=== PATIENT | male | born 1975 | race American Indian/Alaskan Native ===

== ENCOUNTER 2018-03-09 14:28 | Emergency (ER) | payer SELFPAY ==
[2018-03-09 14:53] VITALS: BP 148/86
[2018-03-09] MEDS ORDERED: SOLU-Medrol IM STA (15:43)
--- NOTE | 2018-03-09 15:49 | Emergency Department Report ---
Upper Extremity - HPI Chief Complaint: Shoulder Injury Stated Complaint: RT SHOULDER PAIN Time Seen by Provider: 03/09/18 15:43 Upper Extremity: Right Shoulder (went to sleep on the right shoulder. I'll position. When he woke up reports a lot of sharp burning pain. Mr. 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 Reports no numbness or tingling. Requests were sterile injection) Occurred When: 1 Day Severity: moderate Symptoms: Yes Pain with Movement, Yes Limited Range of Movement, No Deformity, No Numbness, No Weakness, No Swelling, No Bruising/Ecchymosis, No Laceration or Abrasion ED Review of Systems ROS: Stated complaint: RT SHOULDER PAIN Other details as noted in HPI Constitutional: denies: chills, fever Eyes: denies: eye pain, eye discharge, vision change ENT: denies: ear pain, throat pain Respiratory: denies: cough, shortness of breath, wheezing Cardiovascular: denies: chest pain, palpitations Endocrine: no symptoms reported Gastrointestinal: denies: abdominal pain, nausea, diarrhea Genitourinary: denies: urgency, dysuria Musculoskeletal: arthralgia. denies: back pain, joint swelling Skin: denies: rash, lesions Neurological: denies: headache, weakness, paresthesias Psychiatric: denies: anxiety, depression Hematological/Lymphatic: denies: easy bleeding, easy bruising ED Past Medical Hx - Past Medical History Previous Medical History?: Yes Hx Seizures: Yes - Surgical History Past Surgical History?: No - Social History Smoking Status: Current Every Day Smoker Substance Use Type: Alcohol - Medications Home Medications: Home Medications Medication Instructions Recorded Confirmed Last Taken Type Ketorolac [Toradol] 10 mg PO Q6H PRN #15 tablet 03/09/18 Unknown Rx Methocarbamol [Robaxin-750] 750 mg PO Q8H PRN #20 tablet 03/09/18 Unknown Rx Upper Extremity Exam - Exam General: Vital signs noted. No distress. Alert and acting appropriately. Head and Torso: No HEENT Abnormality, No Neck Tenderness, No Chest/Lungs Abnormality, No Abdominal Tenderness, No Back Tenderness Shoulder Exam: Yes Shoulder Tenderness (pain with Aguilar test, nares, chest, brines's test. There is tenderness to the acromioclavicular process. No lymphadenopathy, bruising, abrasions.), Yes Normal Range of Motion in Shoulder, Yes AC Joint Tenderness, No Clavicle Tenderness, No Shoulder Deformity (no sulcus sign is appreciated) Arm Exam: No Arm/Humerus Tenderness, No Arm Deformity Elbow: No Elbow Tenderness, No Normal Range of Motion in Elbow, No Elbow Deformity Forearm: No Forearm Tenderness, No Forearm Deformity, No Pain with Pronation, No Pain with Supination Wrist: Yes Normal ROM in Wrist, No Wrist Tenderness, No Wrist Deformity, No Snuffbox Tenderness, No Pain with Axial Thumb Compression Hand: Yes Normal ROM in Digit(s), No Hand Tenderness, No Hand Deformity, No Digit Tenderness, No Digit(s) Deformity, No Tendon Dysfunction CMS Exam: No Broken Skin, No Normal Distal Pulses, No Normal Capillary Refill, No Normal Distal Sensation ED Course Vital Signs 03/09/18 14:47 Temperature 98.6 F Pulse Rate 60 Respiratory 16 Rate Blood Pressure 148/86 O2 Sat by Pulse 96 Oximetry Critical care attestation.: If time is entered above; I have spent that time in minutes in the direct care of this critically ill patient, excluding procedure time. ED Disposition Clinical Impression: Shoulder pain Disposition: DC-01 TO HOME OR SELFCARE Is pt being admited?: No Does the pt Need Aspirin: No Condition: Stable Instructions: Shoulder Sprain (ED), Arthralgia (ED) Prescriptions: Ketorolac [Toradol] 10 mg PO Q6H PRN #15 tablet PRN Reason: Pain Methocarbamol [Robaxin-750] 750 mg PO Q8H PRN #20 tablet PRN Reason: Spasms Referrals: PRIMARY MD CHADWICK [Primary Care Provider] - 3-5 Days GALEN GODOY MD [Staff Physician] - 3-5 Days
[2018-03-09] MEDS ORDERED: TYLENOL ONE ×2 (15:53→15:57)
[2018-03-09] MEDS ORDERED: TYLENOL PO ONE (15:57)
== END 2018-03-09 16:15 | disposition home or self-care (01) ==
LOC: ED 14:28
DX: M25.511 Pain in right shoulder (principal); F17.200 Nicotine dependence, unspecified, uncomplicated
CPT/HCPCS: 96372; 99282; J2930

== ENCOUNTER 2018-06-03 20:15 | Emergency (ER) | payer OTHER ==
[2018-06-03 20:20] VITALS: BP 138/79
[2018-06-03] MEDS ORDERED: IBUPROFEN ONE (20:31)
[2018-06-03] MEDS ORDERED: IBUPROFEN PO ONE (20:32)
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
== END 2018-06-03 23:19 | disposition home or self-care (01) ==
LOC: ED 20:15
DX: S16.1XXA Strain of muscle, fascia and tendon at neck level, initial encounter (principal); M50.322 Other cervical disc degeneration at C5-C6 level; M54.6 Pain in thoracic spine; V89.2XXA Person injured in unspecified motor-vehicle accident, traffic, initial encounter; Y93.89 Activity, other specified; Y99.8 Other external cause status; Y92.410 Unspecified street and highway as the place of occurrence of the external cause
CPT/HCPCS: 72040; 99283

== ENCOUNTER 2019-05-17 20:00 | Emergency (ER) | payer SELFPAY | END 2019-05-17 23:29 | LOC: ED 20:00 | DX: R56.9 Unspecified convulsions (principal); Z53.21 Procedure and treatment not carried out due to patient leaving prior to being seen by health care provider ==

== ENCOUNTER 2019-06-08 09:56 | Emergency (ER) | payer SELFPAY ==
[2019-06-08 10:02] VITALS: BP 114/51
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
[2019-06-08 11:14] LABS: Basophils % (Auto) 0.7 % (0.0-1.8); Eosinophils # (Auto) 0.1 K/mm3 (0.0-0.4); Eosinophils % (Auto) 1.6 % (0.0-4.3); Hematocrit 42.2 % (35.5-45.6); Hemoglobin 14.5 gm/dl (11.8-15.2); Lymphocytes # (Auto) 1.4 K/mm3 (1.2-5.4); Lymphocytes % (Auto) 24.9 % (13.4-35.0); Mean Corpuscular HGB Conc 34 % (32-34); Mean Corpuscular Volume 97 fl (84-94); Monocytes # (Auto) 0.5 K/mm3 (0.0-0.8); Platelet Count 169 K/mm3 (140-440); Red Blood Count 4.38 M/mm3 (3.65-5.03); Red Cell Distribution Width 13.3 % (13.2-15.2)
[2019-06-08 11:33] LABS: BUN/Creatinine Ratio 11; Blood Urea Nitrogen 9 mg/dL (9-20); Hemolysis Index 15
[2019-06-08] MEDS ORDERED: PHENYTOIN 500 MG in SODIUM CHLORIDE 0.9% 250ML 250 ML IV ONE (12:31)
[2019-06-08] MEDS ORDERED: SODIUM CHLORIDE 0.9% 500 ML 500 ML ONE (13:41)
[2019-06-08] MEDS ORDERED: SODIUM CHLORIDE 0.9% 500 ML 500 ML IV ONE (18:11)
== END 2019-06-08 14:32 | disposition home or self-care (01) ==
LOC: ED 09:56
DX: G40.909 Epilepsy, unspecified, not intractable, without status epilepticus (principal); Z79.899 Other long term (current) drug therapy
CPT/HCPCS: 36415; 80048; 80185; 85025; 96365; 99283; J1165; J7040; J7050

== ENCOUNTER 2019-07-11 14:12 | Emergency (ER) | payer OTHER ==
[2019-07-11 15:47] VITALS: BP 141/91
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
== END 2019-07-11 18:52 | disposition left against medical advice (07) ==
LOC: ED 14:12
DX: M54.2 Cervicalgia (principal); M54.5 Low back pain; V89.2XXA Person injured in unspecified motor-vehicle accident, traffic, initial encounter; Y93.89 Activity, other specified; Y92.410 Unspecified street and highway as the place of occurrence of the external cause; Y99.8 Other external cause status
CPT/HCPCS: 72040; 72100; 99282

== ENCOUNTER 2020-01-12 12:39 | Emergency (ER) | payer BC, OTHER ==
--- NOTE | 2020-01-12 15:03 | Emergency Department Report ---
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 Patient states he was driving with his 9-month-old son in the car. Patient began to have some mild watering/drooling and therefore pulled over into his neighbor's yard. Patient then had seizure then after he became alert and aware he called his . Patient had a headache after seizure which is since resolved. He states he has been mostly compliant with his Dilantin 300 mg every morning but thinks he might of missed a dose in the last several days. Last dose was this a.m. Patient denies any neurologic complaints at this time, denies pain, denies tongue laceration, denies urinary incontinence. Patient's last seizure was 1 year ago - Related Data Previous Rx's Medication Instructions Recorded Last Taken Type Ketorolac [Toradol] 10 mg PO Q6H PRN #15 tablet 03/09/18 Unknown Rx Methocarbamol [Robaxin-750] 750 mg PO Q8H PRN #20 tablet 03/09/18 Unknown Rx Cyclobenzaprine [Flexeril] 10 mg PO TID PRN #30 tablet 06/03/18 Unknown Rx Menthol/Camphor [Gaston Burdett 1 applicatio TP QID PRN #1 tube 06/03/18 Unknown Rx Ointment] Naproxen 500 mg PO BID PRN #30 tablet 06/03/18 Unknown Rx Allergies Allergy/AdvReac Type Severity Reaction Status Date / Time No Known Allergies Allergy Verified 06/08/19 09:57 ED Review of Systems ROS: Stated complaint: SEIZURE Other details as noted in HPI Comment: All other systems reviewed and negative ED Past Medical Hx - Past Medical History Previous Medical History?: Yes Hx Seizures: Yes - Surgical History Past Surgical History?: Yes Additional Surgical History: Blood clot removed from brain post beeing hit by a baseball. - Social History Smoking Status: Current Every Day Smoker - Medications Home Medications: Home Medications Medication Instructions Recorded Confirmed Last Taken Type Ketorolac [Toradol] 10 mg PO Q6H PRN #15 tablet 03/09/18 Unknown Rx Methocarbamol [Robaxin-750] 750 mg PO Q8H PRN #20 tablet 03/09/18 Unknown Rx Cyclobenzaprine [Flexeril] 10 mg PO TID PRN #30 tablet 06/03/18 Unknown Rx Menthol/Camphor [Gaston Burdett 1 applicatio TP QID PRN #1 tube 06/03/18 Unknown Rx Ointment] Naproxen 500 mg PO BID PRN #30 tablet 06/03/18 Unknown Rx ED Physical Exam - General Limitations: No Limitations - Other Other exam information: General: No acute distress Head: Atraumatic Eyes: normal appearance ENT: Moist mucous membranes, no tongue laceration Neck: Normal appearance, no midline tenderness Chest: Clear to auscultation bilaterally CV: Regular rate and rhythm Abdomen: Soft, normal bowel sounds, nontender, nondistended, no rebound or guarding Back: Normal inspection Extremity: Normal inspection, full range of motion Neuro: Alert O x 3, no facial asymmetry, speech clear, no gross motor sensory deficit Psych: Appropriate behavior Skin: No rash ED Course Vital Signs 01/12/20 12:43 Temperature 98 F Pulse Rate 70 Respiratory 16 Rate Blood Pressure 132/75 [Right] O2 Sat by Pulse 97 Oximetry ED Medical Decision Making - Lab Data Result diagrams: 01/12/20 15:13 01/12/20 15:13 Lab Results 01/12/20 01/12/20 01/12/20 Range/Units 15:13 15:13 15:13 WBC 7.2 (4.5-11.0) K/mm3 RBC 4.54 (3.65-5.03) M/mm3 Hgb 15.1 (11.8-15.2) gm/dl Hct 43.6 (35.5-45.6) % MCV 96 H (84-94) fl MCH 33 H (28-32) pg MCHC 35 H (32-34) % RDW 13.3 (13.2-15.2) % Plt Count 179 (140-440) K/mm3 Lymph % (Auto) 25.9 (13.4-35.0) % [place] % (Auto) 8.5 H (0.0-7.3) % Eos % (Auto) 1.9 (0.0-4.3) % Baso % (Auto) 1.0 (0.0-1.8) % Lymph # 1.9 (1.2-5.4) K/mm3 [place] # 0.6 (0.0-0.8) K/mm3 Eos # 0.1 (0.0-0.4) K/mm3 Baso # 0.1 (0.0-0.1) K/mm3 Seg Neutrophils % 62.7 (40.0-70.0) % Seg Neutrophils # 4.5 (1.8-7.7) K/mm3 Sodium 140 (137-145) mmol/L Potassium 3.8 (3.6-5.0) mmol/L Chloride 104.3 (98-107) mmol/L Carbon Dioxide 22 (22-30) mmol/L Anion Gap 18 mmol/L BUN 9 (9-20) mg/dL Creatinine 0.9 (0.8-1.3) mg/dL Estimated GFR > 60 ml/min BUN/Creatinine Ratio 10 % Glucose 83 (75-100) mg/dL Calcium 9.4 (8.4-10.2) mg/dL Magnesium 2.00 (1.7-2.3) mg/dL Phenytoin 8.2 L (10.0-20.0) ug/mL - Medical Decision Making Patient status post seizure with subtherapeutic Dilantin level and admits to missing a dose several days ago. Patient provided 500 mg of IV Cerebyx. No seizure activity and asymptomatic while in the ED. Labs unremarkable. Patient will be discharged to continue his current Dilantin and to follow-up with his neurologist Critical Care Time: No Critical care attestation.: If time is entered above; I have spent that time in minutes in the direct care of this critically ill patient, excluding procedure time. ED Disposition Clinical Impression: Seizure, Subtherapeutic serum dilantin level Disposition: DC-01 TO HOME OR SELFCARE Is pt being admited?: No Does the pt Need Aspirin: No Condition: Stable Instructions: Recurrent Seizures Adult (ED) Additional Instructions: Take the medication as prescribed. Follow-up with your neurologist. Return if symptoms worsen as indicated by your discharge instructions. Do not drive due to risk of recurrent seizures and injury to yourself and others on the road. Referrals: PRIMARY CARE, [Primary Care Provider] - 3-5 Days your, neurolgist [Other] - 3-5 Days
[2020-01-12 15:36] LABS: Basophils # (Auto) 0.1 K/mm3 (0.0-0.1); Eosinophils # (Auto) 0.1 K/mm3 (0.0-0.4); Eosinophils % (Auto) 1.9 % (0.0-4.3); Hematocrit 43.6 % (35.5-45.6); Hemoglobin 15.1 gm/dl (11.8-15.2); Lymphocytes # (Auto) 1.9 K/mm3 (1.2-5.4); Lymphocytes % (Auto) 25.9 % (13.4-35.0); Mean Corpuscular HGB Conc 35 % (32-34); Mean Corpuscular Volume 96 fl (84-94); Monocytes # (Auto) 0.6 K/mm3 (0.0-0.8); Monocytes % (Auto) 8.5 % (0.0-7.3); Platelet Count 179 K/mm3 (140-440); Red Blood Count 4.54 M/mm3 (3.65-5.03); Red Cell Distribution Width 13.3 % (13.2-15.2)
[2020-01-12 15:47] LABS: BUN/Creatinine Ratio 10; Blood Urea Nitrogen 9 mg/dL (9-20); Calcium 9.4 mg/dL (8.4-10.2); Hemolysis Index 19
[2020-01-12] MEDS ORDERED: [UNRECOGNIZED DRUG - OTHER] IV ONE (16:00)
[2020-01-12] MEDS ORDERED: FOSPHENYTOIN IV ONE (16:00)
[2020-01-12] MEDS ORDERED: SODIUM CHLORIDE IV ONE (16:00)
[2020-01-12 19:02] VITALS: BP 124/70
== END 2020-01-12 19:01 | disposition home or self-care (01) ==
LOC: ED 12:39
DX: R56.9 Unspecified convulsions (principal)
CPT/HCPCS: 36415; 80048; 80185; 83735; 85025; 96365; 99283; Q2009

== ENCOUNTER 2021-06-01 15:17 | Emergency (ER) | payer SELFPAY ==
[2021-06-01 16:21] VITALS: BP 125/75
[2021-06-01] MEDS ORDERED: PHENYTOIN 1,000 MG in SODIUM CHLORIDE 0.9% 250ML 250 ML IV ONE (16:57)
--- NOTE | 2021-06-01 17:01 | Emergency Department Report ---
ED Seizure HPI - General Chief Complaint: Seizure Stated Complaint: SEIZURES Time Seen by Provider: 06/01/21 16:47 Source: patient Mode of arrival: Ambulatory Limitations: No Limitations - History of Present Illness Initial Comments: Patient is 45 years old male with history of seizure on Dilantin since 1993. Patient stated that he has seizure today at work, generalized tonic-clonic seizure witnessed by his coworker. Patient now is back to normal. Patient stated that he is compliant with his Dilantin. Patient stated that he is taking 400 mg. Patient stated that last seizure was 2 years ago. Patient denied any headache, neck pain, chest pain, shortness of breath, abdominal pain, nausea or vomiting. No weakness numbness or tingling sensation. MD Complaint: seizure Description of Episode: loss of consciousness, tonic-clonic movement, post-event confusion Witnessed:: Yes Trauma: No Seizure History: known seizure disorder Place: work Possible Precipitating Event: none Associated Symptoms: denies other symptoms Treatments Prior to Arrival: none - Related Data Previous Rx's Medication Instructions Recorded Last Taken Type Ketorolac [Toradol] 10 mg PO Q6H PRN #15 tablet 03/09/18 Unknown Rx methocarbamoL [Robaxin-750] 750 mg PO Q8H PRN #20 tablet 03/09/18 Unknown Rx Cyclobenzaprine [Flexeril] 10 mg PO TID PRN #30 tablet 06/03/18 Unknown Rx Menthol/Camphor [Lomita Butler 1 applicatio TP QID PRN #1 tube 06/03/18 Unknown Rx Ointment] Naproxen 500 mg PO BID PRN #30 tablet 06/03/18 Unknown Rx Allergies Allergy/AdvReac Type Severity Reaction Status Date / Time No Known Allergies Allergy Verified 06/08/19 09:57 ED Review of Systems ROS: Stated complaint: SEIZURES Other details as noted in HPI Comment: All other systems reviewed and negative Constitutional: denies: chills, fever Respiratory: denies: cough, shortness of breath, SOB with exertion, SOB at rest Cardiovascular: denies: chest pain, palpitations Gastrointestinal: denies: abdominal pain, nausea, vomiting, diarrhea, constipation, hematemesis, melena Musculoskeletal: denies: back pain Neurological: denies: headache, weakness, numbness, paresthesias, confusion, abnormal gait ED Past Medical Hx - Past Medical History Previous Medical History?: Yes Hx Seizures: Yes - Surgical History Past Surgical History?: Yes Additional Surgical History: Blood clot removed from brain post beeing hit by a baseball. - Social History Smoking Status: Current Every Day Smoker - Medications Home Medications: Home Medications Medication Instructions Recorded Confirmed Last Taken Type Ketorolac [Toradol] 10 mg PO Q6H PRN #15 tablet 03/09/18 Unknown Rx methocarbamoL [Robaxin-750] 750 mg PO Q8H PRN #20 tablet 03/09/18 Unknown Rx Cyclobenzaprine [Flexeril] 10 mg PO TID PRN #30 tablet 06/03/18 Unknown Rx Menthol/Camphor [Lomita Butler 1 applicatio TP QID PRN #1 tube 06/03/18 Unknown Rx Ointment] Naproxen 500 mg PO BID PRN #30 tablet 06/03/18 Unknown Rx ED Physical Exam - General Limitations: No Limitations General appearance: alert, in no apparent distress - Head Head exam: Present: atraumatic, normocephalic, normal inspection - Eye Eye exam: Present: normal appearance - ENT ENT exam: Present: normal exam, normal orophraynx, mucous membranes moist - Neck Neck exam: Present: normal inspection, full ROM. Absent: tenderness, men ingismus - Respiratory Respiratory exam: Present: normal lung sounds bilaterally - Cardiovascular Cardiovascular Exam: Present: regular rate, normal rhythm, normal heart sounds - GI/Abdominal GI/Abdominal exam: Present: soft, normal bowel sounds. Absent: distended, tenderness, guarding, rebound, rigid, organomegaly, mass, bruit, pulsatile mass, hernia - Extremities Exam Extremities exam: Present: normal inspection, full ROM, normal capillary refill. Absent: tenderness - Back Exam Back exam: Present: normal inspection, full ROM. Absent: CVA tenderness (R), CVA tenderness (L) - Neurological Exam Neurological exam: Present: alert, oriented X3, CN II-XII intact, normal gait, reflexes normal. Absent: motor sensory deficit - Psychiatric Psychiatric exam: Present: normal mood - Skin Skin exam: Present: warm, intact, normal color ED Course Vital Signs 06/01/21 16:18 Temperature 98 F Pulse Rate 64 Respiratory 16 Rate Blood Pressure 125/75 [Left] O2 Sat by Pulse 97 Oximetry ED Medical Decision Making - Lab Data Result diagrams: 06/01/21 17:15 06/01/21 17:15 - Medical Decision Making Patient is 45 years old male with history of seizure on Dilantin since 1993. Patient stated that he has seizure today at work, generalized tonic-clonic seizure witnessed by his coworker. Patient now is back to normal. Patient stated that he is compliant with his Dilantin. Patient stated that he is taking 400 mg. Patient stated that last seizure was 2 years ago. Patient denied any headache, neck pain, chest pain, shortness of breath, abdominal pain, nausea or vomiting. No weakness numbness or tingling sensation. Labs reviewed and is unremarkable except for Dilantin level of 30 slightly above the therapeutic level. Patient stated that he took extra doses yesterday by mistake but he did not took anything today. Patient advised to follow-up with his primary care physician in the next 2 to 3 days and to return to the ER if he develop any new symptoms. Critical care attestation.: If time is entered above; I have spent that time in minutes in the direct care of this critically ill patient, excluding procedure time. ED Disposition Clinical Impression: Seizure Disposition: 01 HOME / SELF CARE / HOMELESS Is pt being admited?: No Condition: Stable Instructions: Seizure, Adult Referrals: PRIMARY CARE, [Primary Care Provider] - 3-5 Days
[2021-06-01 17:33] LABS: Hematocrit 43.2 % (35.5-45.6); Hemoglobin 14.3 gm/dl (11.8-15.2); Mean Corpuscular HGB Conc 33 % (32-34); Mean Corpuscular Volume 96 fl (84-94); Platelet Count 147 K/mm3 (140-440); Red Blood Count 4.51 M/mm3 (3.65-5.03); Red Cell Distribution Width 12.7 % (13.2-15.2)
[2021-06-01 17:58] LABS: Alanine Aminotransferase 28 units/L (7-56); Albumin 4.3 g/dL (3.9-5); Blood Urea Nitrogen 7 mg/dL (9-20); Calcium 9.2 mg/dL (8.4-10.2); Hemolysis Index 15
[2021-06-01 18:05] LABS: BUN/Creatinine Ratio 10; Bilirubin,Direct < 0.2 mg/dL (0-0.2)
[2021-06-01 18:08] LABS: Basophils % (Manual) 0 % (0.0-1.8); Large Platelets Few; Platelet Estimate Consistent w Auto; RBC Morphology Normal; Total Cells Counted 100
[2021-06-01] MEDS ORDERED: levETIRAcetam 1000 MG/NS 0.75% 1,000 MG/100 ML BAG IV ONE (18:36)
== END 2021-06-01 19:22 | disposition home or self-care (01) ==
LOC: ED 15:17
DX: G40.909 Epilepsy, unspecified, not intractable, without status epilepticus (principal); F17.200 Nicotine dependence, unspecified, uncomplicated
CPT/HCPCS: 36415; 80048; 80076; 80185; 85007; 85025; 99283; J1165; J7050